=== PATIENT | male | born 1985 | race Caucasian/White ===

== ENCOUNTER 2016-04-07 19:54 | Emergency (ER) | payer SELFPAY ==
[~2016-04-07] VITALS: Wt 90.0 kg
[2016-04-07] MEDS ORDERED: DIPHENHYDRAMINE 50 MG CAP PO ONE (23:00)
[2016-04-07] MEDS ORDERED: FAMOTIDINE 20 MG TAB PO ONE (23:00)
[2016-04-07] MEDS ORDERED: predniSONE 20 MG TAB PO ONE (23:00)
[2016-04-07] MEDS ORDERED: PRED20TA PO (23:34)
[2016-04-07] MEDS ORDERED: BEN25 PO (23:35)
[2016-04-07] MEDS ORDERED: FAMO-18 PO (23:35)
--- NOTE | 2016-04-07 23:41 | ERD ---
ER Documentation Chief Complaint Date/Time DATE: 04/07/16 TIME: 23:36 Chief Complaint GENERAL REDNESS TO ARMS AND LEGS. NO STRIDOR. MILD SOB NO WHEEZING. HPI This a 30-year-old male who presents the emergency department today for a rash on his body for the past 2 days. Patient states he took Benadryl one time 2 days ago. States the rash is itching. Denies any new medications, detergents or foods. States he is up-to-date on his vaccines. States he uses marijuana and cocaine.Denies any shortness of breath or difficulty breathing. ROS All systems reviewed and are negative except as per history of present illness. Medications Home Meds Active Scripts Famotidine* (Pepcid*) 20 Mg Tablet, 20 MG PO BID for 7 Days, TAB Prov:BERT HER PA-C 04/07/16 Diphenhydramine Hcl* (Benadryl*) 25 Mg Cap, 25 MG PO Q6, #30 CAP Prov:BERT HER PA-C 04/07/16 Prednisone* (Prednisone*) 20 Mg Tab, 40 MG PO DAILY for 4 Days, TAB Prov:BERT HER PA-C 04/07/16 Physical Exam Vitals Vital Signs Date Time Temp Pulse Resp B/P Pulse Ox O2 Delivery O2 Flow Rate FiO2 04/07/16 20:10 98.8 88 21 127/60 99 Physical Exam Const: No acute distress Head: Atraumatic Eyes: Normal Conjunctiva ENT: Normal External Ears, Nose and Mouth. No lip swelling. Neck: Full range of motion..~ No meningismus. Resp: Clear to auscultation bilaterally Cardio: Regular rate and rhythm, no murmurs Abd: Soft, non tender, non distended. Normal bowel sounds Skin: Diffuse papular rash with erythema over bilateral legs arms chest and back. Ext: No cyanosis, or edema Neur: Awake and alert Psych: Normal Mood and Affect Results 24 hrs Current Medications Medications (Trade) Dose Ordered Sig/Karine Route PRN Reason Start Time Stop Time Status Last Admin Dose Admin Diphenhydramine HCl (Benadryl) 50 mg ONCE ONCE PO 04/07/16 23:00 04/07/16 23:01 DC Prednisone (Prednisone) 60 mg ONCE ONCE PO 04/07/16 23:00 04/07/16 23:01 DC Famotidine (Pepcid) 20 mg ONCE ONCE PO 04/07/16 23:00 04/07/16 23:01 DC Procedures/MDM This a 30-year-old male who presents to the emergency department today for a rash over the majority of his body. On physical exam patient has an erythematous papular rash on his bilateral legs, arms chest and back. Patient is afebrile here in the emergency department. His oxygen saturation 99%. He is talkative and in no acute distress. Low suspicion for angioedema or anaphylaxis. Patient symptoms at this time most consistent with allergic reaction. Low suspicion for viral exanthem, SJS, cellulitis, sepsis, meningitis , measles, eczema. Patient was given Benadryl, prednisone and Pepcid here in the emergency department. I will give him a prescription for home. Patient was instructed to stop abusing drugs. At this time the patient is stable for discharge and outpatient management. Patient should follow up with their PCP in the next 1-2 days. He was given a list of community resources. They may return to the emergency department sooner for any persistent or worsening of symptoms. Patient understood and agreed with the plan. Departure Diagnosis: Primary Impression: Rash and nonspecific skin eruption Condition: Fair Patient Instructions: Self-Care for Skin Rashes, Allergic Reaction, Other ( General) Referrals: [facility] YOU HAVE RECEIVED A MEDICAL SCREENING EXAM AND THE RESULTS INDICATE THAT YOU DO NOT HAVE A CONDITION THAT REQUIRES URGENT TREATMENT IN THE EMERGENCY DEPARTMENT. FURTHER EVALUATION AND TREATMENT OF YOUR CONDITION CAN WAIT UNTIL YOU ARE SEEN IN YOUR DOCTORS OFFICE WITHIN THE NEXT 1-2 DAYS. IT IS YOUR RESPONSIBILITY TO MAKE AN APPOINTMENT FOR FOLOW-UP CARE. IF YOU HAVE A PRIMARY DOCTOR --you should call your primary doctor and schedule an appointment IF YOU DO NOT HAVE A PRIMARY DOCTOR YOU CAN CALL OUR PHYSICIAN REFERRAL HOTLINE AT IF YOU CAN NOT AFFORD TO SEE A PHYSICIAN YOU CAN CHOSE FROM THE FOLLOWING [facility] [id number] [place]. [facility] [address] [facility]. [facility] [address] [facility] [address] [facility]. [facility] [address] [facility]. [facility] [address] Additional Instructions: Call your primary care doctor TOMORROW for an appointment during the next 1-2 days.See the doctor sooner or return here if your condition worsens before your appointment time. Take all medications as prescribed BERT HER PA-C Apr 07, 2016 23:41
[2016-04-08 00:21] VITALS: BP 123/64; PULSE 68; RESP 18; TEMP 98.8
== END 2016-04-08 00:23 | disposition home or self-care (01) ==
LOC: FTE 19:54
DX: R21 Rash and other nonspecific skin eruption (principal)
CPT/HCPCS: 99283; J7512